=== PATIENT | female | born 1990 | race Caucasian/White ===

== ENCOUNTER 2021-02-15 19:16 | Emergency (ER) | payer OTHER, SELFPAY ==
[2021-02-15 19:17] VITALS: BP 121/78; PULSE 75; RESP 16; TEMP 37; O2SAT 98; BMI 26.6
[2021-02-15 19:45] LABS: Adenovirus,PCR Not Detected (NotDetected); Bordetella Pertussis Not Detected (NotDetected); Chlamydophila Pneumoniae, PCR Not Detected (NotDetected); Coronavirus 19, PCR Not Detected (NotDetected); Coronavirus 229E Not Detected (NotDetected); Coronavirus NL63 Not Detected (NotDetected); Coronavirus OC43 Not Detected (NotDetected); Coronovirus HKU1,PCR Not Detected (NotDetected); Human Metapneumovirus Not Detected (NotDetected); Influenza A, PCR Not Detected (NotDetected); Influenza AH1, 2009 Not Detected (NotDetected); Influenza AH1, PCR Not Detected (NotDetected); Influenza AH3,PCR Not Detected (NotDetected); Influenza B, PCR Not Detected (NotDetected); Mycoplasma Pneumoniae, PCR Not Detected (NotDetected); Parainfluenza 1, PCR Not Detected (NotDetected); Parainfluenza 2, PCR Not Detected (NotDetected); Parainfluenza 3, PCR Not Detected (NotDetected); Parainfluenza 4, PCR Not Detected (NotDetected); Respiratory Syncytial Virus Not Detected (NotDetected); Rhinovirus/Enterovirus Not Detected (NotDetected)
--- NOTE | 2021-02-15 20:07 | HMH.EDUTC ---
[facility] [place] Disposition Clinical Impression: Viral syndrome Disposition: Home, Self-Care Condition on Discharge: Good Instructions: DI for Viral Syndrome, DI for COVID-19 (Suspected or Confirmed ), Coronavirus Disease 2019, Preventing the Spread of Coronavirus Discharge Instructions Additional Instructions: *Monitor Temp, Over the counter Motrin or Tylenol as directed/as needed Tylenol every 4 hours and Motrin every 6 hours (as long as your family doctor has told you that you can take it) for fever or pain. and straight to ER if unable to lower temp less than 101.0 after medication given *Warm salt water gargles may help to soothe the throat *Throat Lozenges *Warm fluids like tea with honey may help to soothe the throat *Sleep elevated *Humidifier/Vaporizer Follow up IMMEDIATELY for new or worsening symptoms or no Noticeable improvement over the next 48-72 hours. 911 for difficulty breathing or swallowing You were tested for today for COVID19 your test result should be back in the next 24-48 hours, you may call to the [facility] to see if your test results are back in the next 48 hours [phone] [facility] hours are 9am-9pm You was given a handout with instructions for Self Quarantine and Self isolation for while you wait on test results and what to do if they are positive If you are positive the Health Dept will be contacting you also Referrals: Joselyn Prado APRN [Primary Care Provider] - As needed Forms: Work/School Release Time of Disposition: 20:09 Medical Decision Making - Jarad Inquiry Pt receiving controlled substance: No Jarad was queried for this patient: No Vital Signs: 02/15/21 19:17 Temperature 98.6 F Temperature Source Oral Pulse Rate [Right] 75 Respiratory Rate 16 Blood Pressure [Right Arm] 121/78 Blood Pressure Mean [Right Arm] 92 Blood Pressure Source [Right Arm] Automatic Cuff Blood Pressure Position [Right Arm] Sitting 02 Sat by Pulse Oximetry 98 Orders (Tests/Meds): ORDERS Category Date Time Status Full Resp Panel w/COVID ([facility]) Routine Lab 02/15/21 19:40 Received [facility] [place] HPI - General Stated complaint: heachache,weakness,dizzness Time Seen by Provider: 02/15/21 19:25 Mode of Arrival: Ambulatory Source of Information: Patient Limitations: No Limitations Description of Symptoms (Recalled from Triage Doc. by RN): pt c/o weakness, dizziness, headache, fatigue HEENT Symptoms (Recalled from RN notes): Yes Resp Symptoms (Recalled from RN notes): No Skin Symptoms (Recalled from RN notes): No MS Symptoms (Recalled from RN notes): No Functional Status (Recalled from RN notes): na - History of Present Illness Provider Complaint: Patient states that she has been feeling like she has the Flu State that she has been feeling weak, tired, having body aches, chills, headache and feeling like her ears are full and sometimes feels dizzy when she is coughing hard State that she was seen in ER in [place] a couple days ago and dx with UTI but states that she is concerned and 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 I have reviewed the patient's past medical history: Yes ROS Obtained: Yes All systems reviewed & no additional complaints, Yes Systems reviewed as appropriate & no additional complaints - Constitutional Constitutional: Reports system reviewed and no additional complaints, except as docu, Reports body ache, Reports chills, Re
[2021-02-15 20:24] VITALS: BP 120/74; PULSE 74; RESP 16; TEMP 36.9; O2SAT 98
== END 2021-02-15 20:25 | disposition home or self-care (01) ==
PROVIDERS: Emergency Provider Nurse Practitioner; PCP Nurse Practitioner Family
DX: B34.9 Viral infection, unspecified (principal); R42 Dizziness and giddiness; Z20.822 Contact with and (suspected) exposure to COVID-19
CPT/HCPCS: 87581; 87633; 87798; 99202; G0463

== ENCOUNTER 2021-05-10 08:34 | Emergency (ER) | payer OTHER, SELFPAY ==
[2021-05-10 08:35] VITALS: BP 136/83; PULSE 80; RESP 16; TEMP 37.2; O2SAT 99; BMI 26.6
[2021-05-10 08:42] VITALS: BP 136/83; PULSE 68; RESP 17
[2021-05-10 09:06] LABS: Microscopic, Urine URINE MICROSCOPIC (MICROSCOPIC)
[2021-05-10 09:07] LABS: Appearance,Urine CLEAR (Clear); Bilirubin,Urine Negative (Negative); Blood, Urine 1+ (Negative); Color,Urine YELLOW (Yellow); Glucose,Urine (UA) Negative (Negative); Ketones,Urine Negative (Negative); Leukocyte Esterase,Urine 3+ (Negative); Nitrate,Urine Negative (Negative); PH,Urine 7.5 (5.0-8.5); Protein,Urine Negative (Negative); Specific Gravity, Urine 1.015 (1.005-1.030); Urobilinogen,Urine 0.2 EU/dl (0.2)
[2021-05-10 09:09] LABS: Urine Pregnancy, HCG Qual. Positive (Negative)
[2021-05-10 09:19] LABS: Bacteria,Urine 1+ /lpf
[2021-05-10 09:24] LABS: Basophils # 0.1 K/mm3 (0-0.2); Basophils % 1.2 % (0.1-2.0); Chloride 105 mmol/L (98-107); Eosinophils # 0.2 K/mm3 (0.0-0.4); Eosinophils % 4.7 % (0.1-12.0); Hematocrit 39.8 % (37.0-47.0); Hemoglobin 13.3 g/dL (12.2-16.2); Lymphocytes # 1.5 K/mm3 (0.7-4.5); Lymphocytes % 29.2 % (10-50); Mean Corpuscular HGB Conc 33.5 g/dL (31.8-35.4); Mean Corpuscular Hemoglobin 30.8 pg (27.0-31.2); Mean Corpuscular Volume 91.7 fl (81-99); Mean Platelet Volume 8.2 fl (7.4-10.4); Monocytes # 0.3 K/mm3 (0.1-1.0); Platelet Count 211 K/mm3 (142-424); Potassium 3.8 mmoL/L (3.5-5.1); Red Blood Count 4.34 M/mm3 (4.20-5.40); Red Cell Distribution Width 13.5 % (11.5-17.5); White Blood Count 5.1 K/mm3 (4.8-10.8)
[2021-05-10 09:25] LABS: Sodium 138 mmol/L (136-145)
[2021-05-10 09:27] LABS: Alanine Aminotransferase 40 U/L (12-78); Albumin/Globulin Ratio 1.3 (1.1-1.8); Alkaline Phosphatase 68 U/L (38-126); Anion Gap 11.8 mEq/L (5-15); Aspartate Amino Transferase 44 U/L (14-36); Bilirubin,Total 0.4 mg/dl (0.2-1.3); Blood Urea Nitrogen 6 mg/dl (7-17); Calcium 8.7 mg/dl (8.4-10.2); Carbon Dioxide 25 mmol/L (22.0-30.0); Creatinine Clearance Estimated 190 mL/min (50-200); Estimated Glomerular Filt Rate 146 ml/min (>60); GFR (African American) 177 ML/MIN (>60); Glucose 94 mg/dl (74-100)
--- NOTE | 2021-05-10 09:59 | HMH.EDGENADL ---
ED Disposition Clinical Impression: Threatened UTI in Qualifiers: Trimester: first trimester Qualified Code(s): O23.41 - Unspecified infection of urinary tract in , first trimester Disposition: Home, Self-Care Condition on Discharge: Good Instructions: DI for Vaginal Bleeding Prescriptions: cephALEXin [Cephalexin 500mg Tab] 500 mg PO BID #14 tab Prescription Printed Referrals: Joselyn Prado APRN [Primary Care Provider] - Bernardo Knox MD [Staff Physician] - - Critical Care Critical Care Time: No Attestation: On 05/10/21, the high probability of a clinically significant, sudden or life threatening deterioration of the following system(s) required my full and direct attention, intervention and personal management. The time I documented below is in addition to time spent performing reported procedures but includes the following listed in this critical care notation. Medical Decision Making - Medical Records Medical records reviewed: Yes: I reviewed the patient's medical records. - Jarad Inquiry Pt receiving controlled substance: No Vital Signs: 05/10/21 08:35 05/10/21 08:42 Temperature 98.9 F Temperature Source Oral Pulse Rate 68 Pulse Rate [Radial] 80 Respiratory Rate 16 17 Blood Pressure 136/83 Blood Pressure [Right Arm] 136/83 Blood Pressure Mean 100 Blood Pressure Mean [Right Arm] 100 Blood Pressure Position [Right Arm] Sitting 02 Sat by Pulse Oximetry 99 Oxygen Delivery Method Room Air - Lab Data Lab Results 05/10/21 08:39: Urine Color Yellow, Urine Appearance Clear, Urine pH 7.5, Ur Specific Bixby 1.015, Urine Protein Negative, Urine Glucose (UA) Negative, Urine Ketones Negative, Urine Blood 1+, Urine Nitrate Negative, Urine Bilirubin Negative, Urine Urobilinogen 0.2, Ur Leukocyte Esterase 3+ A, Urine RBC 5-10, Urine WBC 10-20, Ur Squamous Epith Cells 3-5, Urine Bacteria 1+ 05/10/21 08:39: Urine HCG, Qual Positive 05/10/21 09:07: WBC 5.1, RBC 4.34, Hgb 13.3, Hct 39.8, MCV 91.7, MCH 30.8, MCHC 33.5, RDW 13.5, Plt Count 211, MPV 8.2, Neut % (Auto) 59.0, Lymph % (Auto) 29.2, Hartley % (Auto) 6.0, Eos % (Auto) 4.7, Baso % (Auto) 1.2, Neut # (Auto) 3.0, Lymph # (Auto) 1.5, Hartley # (Auto) 0.3, Eos # (Auto) 0.2, Baso # (Auto) 0.1 05/10/21 09:07: Sodium 138, Potassium 3.8, Chloride 105, Carbon Dioxide 25, Anion Gap 11.8, BUN 6 L, Creatinine 0.50 L, Estimated Creat Clear 190, Estimated GFR 146, Est GFR ( Amer) 177, Glucose 94, Calcium 8.7, Total Bilirubin 0.4, AST 44 H, ALT 40, Alkaline Phosphatase 68, Total Protein 7.0, Albumin 4.0, Globulin 3.0, Albumin/Globulin Ratio 1.3 05/10/21 09:07: HCG, Quant [id number] H 05/10/21 09:10: Blood Type B Positive Result diagrams: 05/10/21 09:07 05/10/21 09:07 Orders (Tests/Meds): ED MEDICATIONS Discontinued Medications Generic Name Dose Route Start Last Admin Trade Name Brentonq PRN Reason Stop Dose Admin Acetaminophen 500 mg 05/10/21 08:49 05/10/21 09:19 Acetaminophen 500mg Tab PO 05/10/21 08:50 500 mg ONCE ONE Administration ORDERS Category Date Time Status US OB <= 14 weeks fetus Stat Exams 05/10/21 10:09 Ordered Urine Culture Stat Micro 05/10/21 08:39 Received - US Data US Images: Pelvis ED US Reviewed: Yes: I have reviewed the patient's US results, I discussed the US results w/the radiologist Findings Narrative: fetus of 7 weeks 5 days, small placenta - Reevaluation(s) Time: 12:40 Reevaluation #1: On reevaluation, patient is feeling better. Ultrasound did show a fetus of 7 weeks 5 days. Slightly smaller placenta than anticipated. Patient also has mild UTI. I did explain to the patient that she will need follow-up examination by OB within 72 hours. She would like to need repeat blood work at that time. If she is to have any change in pain or bleeding she is to report to the emergency department immediately. Patient given strict return precautions. Verbalized understan
--- NOTE | 2021-05-10 10:09 | US_ITS ---
PROCEDURE: US OB <= 14 WEEKS FETUS CLINICAL INDICATION: pain, bleeding, The the COMPARISON: No exams were available for comparison FINDINGS: An intrauterine gestational sac is present with a pole with a crown-rump length of 1.33cm correlating to gestational age of 7weeks 5days. heart tones are present with an FHR of 144bpm. Yolk sac is noted. 15 mm left ovarian cyst. IMPRESSION: Live IUP at 7 weeks 5 days Estimated due date by Ultrasound is 12/22/2021 Dictated by: Ryne Escalera MD 05/10/2021 14:04 Ryne Escalera MD in OV 05/10/2021 14:04
[2021-05-10 10:17] LABS: HCG,Quantitative 16293 mIU/ml (0-5.42)
--- NOTE | 2021-05-10 10:33 | PC.NURSE ---
radiology aware of ultrasound order, tech in a procedure, will do ultrasound as soon as possible.
--- NOTE | 2021-05-10 11:20 | PC.NURSE ---
Going up to ultrasound.
--- NOTE | 2021-05-10 11:56 | PC.NURSE ---
pt return from ultrasound
[2021-05-10 11:57] VITALS: BP 133/82; PULSE 77; RESP 14; O2SAT 99
[2021-05-10 12:00] VITALS: BP 140/94; PULSE 78; RESP 15; O2SAT 98
[2021-05-10 12:30] VITALS: BP 135/79; PULSE 86; RESP 17; O2SAT 98
[2021-05-10 12:51] VITALS: BP 123/74; PULSE 87; RESP 16; TEMP 36.6; O2SAT 98
== END 2021-05-10 12:53 | disposition home or self-care (01) ==
PROVIDERS: Emergency Provider Emergency Medicine; PCP Nurse Practitioner Family
DX: O23.41 Unspecified infection of urinary tract in pregnancy, first trimester (principal)
CPT/HCPCS: 76801; 80053; 81001; 81025; 84702; 85025; 86900; 86901; 87086; 99283

== ENCOUNTER → 2021-05-14 12:57 | Outpatient (CLI) | payer OTHER, SELFPAY ==
[2021-05-14 15:25] LABS: HCG,Quantitative 20686 mIU/ml (0-5.42)
== END ==
PROVIDERS: Visit Provider Obstetrics & Gynecology
DX: O20.9 Hemorrhage in early pregnancy, unspecified (principal)
CPT/HCPCS: 36415; 84702